=== PATIENT | female | born 1995 | race Caucasian/White ===

== ENCOUNTER 2021-05-14 13:39 | Outpatient (CLI) | payer BC, SELFPAY ==
--- NOTE | ~2021-05-14 | US_ITS ---
EXAMINATION: US renal BI EXAM DATE: 05/14/2021 14:10 INDICATION: Abdominal pain. . TECHNIQUE: Multiple grayscale and Doppler images of the kidneys were obtained (by a technologist who performed the scan) and subsequently reviewed. There is no prior study for comparison. FINDINGS: There are normal renal artery resistive indices bilaterally. Right kidney: There is normal contour and echogenicity. It measures 13.1 x 4.2 x 5.7 centimeters. T here are no focal renal lesions identified. There is no hydronephrosis. Left kidney: There is normal contour and echogenicity. It measures 13.3 x 5.3 x 6.3 centimeters. Th ere are no focal renal lesions identified. There is no hydronephrosis. Bladder unremarkable. Bilateral ureteral jets were confirmed. IMPRESSION: 1. Sonographically unremarkable kidneys. Reviewed, dictated and finalized at location A. ICAL SCIENCES PROFESSOR
== END 2021-05-14 13:40 | disposition home or self-care (01) ==
LOC: ANHIMG 13:46
PROVIDERS: Visit Provider Obstetrics & Gynecology
DX: R10.9 Unspecified abdominal pain (principal)
CPT/HCPCS: 76775

== ENCOUNTER 2021-08-19 13:38 | Outpatient (RCR) | payer BC, SELFPAY ==
[2021-05-26 14:37] VITALS: BP 110/73; PULSE 89
[2021-08-19 14:32] LABS: Alanine Aminotransferase 12 U/L (6-35); Albumin Level 2.9 g/dL (3.5-5.1); Alkaline Phosphatase 115 U/L (38-126); Anion Gap 5 mmol/L (8-16); Aspartate Amino Transferase 23 U/L (14-36); Bilirubin,Total 0.4 mg/dL (0.2-1.3); Blood Urea Nitrogen 5 mg/dL (7-17); Calcium 7.8 mg/dL (8.4-10.2); Carbon Dioxide 21 mmol/L (22-30); Chloride 109 mmol/L (98-107); Estimated Glomerular Filt Rate > 60; Glucose 92 mg/dL (65-110); Potassium 3.2 mmol/L (3.4-5.0); Sodium 135 mmol/L (137-145)
[2021-08-19 14:39] VITALS: BP 115/78; PULSE 91
[2021-08-24 18:22] LABS: Chenodeoxycholic Acid <0.5 umol/L (< OR = 3.9); Cholic Acid <0.5 umol/L (< OR = 2.8); Deoxycholic Acid <0.5 umol/L (< OR = 2.3); Total Bile Acids <1.5 umol/L (< OR = 8.3)
== END 2021-08-24 23:59 | disposition home or self-care (01) ==
LOC: ANHOBOP 13:38
PROVIDERS: Visit Provider Obstetrics & Gynecology
DX: O36.8120 Decreased fetal movements, second trimester, not applicable or unspecified (principal); Z3A.24 24 weeks gestation of pregnancy; Z3A.36 36 weeks gestation of pregnancy
CPT/HCPCS: 36415; 59025; 80053; 82542

== ENCOUNTER 2021-08-22 12:57 | Inpatient (IN) | payer BC, SELFPAY ==
[2021-08-22] VITALS (13 sets, daily range): BP systolic 106–136; BP diastolic 54–92; PULSE 92–128; TEMP 36.5–36.6; BMI 35.4
--- OUTSIDE RECORDS SUMMARY | 2021-08-22 13:02 | XMS_ITS ---
:1995 Author Care Team Providers Name Role Phone ELLEN SHEPHERD MD Primary Care Provider [phone] Allergies Code Code System Name Reaction Severity Status Onset NKDA ? Medications Name Status Start Date Stop Date ? ? amoxicillin 500 mg capsule Completed ? 06/20 TAKE ONE CAPSULE BY MOUTH EVERY 6 HOURS UNTIL ALL TAKEN metoclopramide 10 mg tablet Active ? Not available TAKE 1 TABLET BY MOUTH EVERY 6 HOURS ondansetron HCl 4 mg tablet Active ? Not available TAKE 1 TABLET BY MOUTH EVERY 6 HOURS NEEDED FOR NAUSEA OR VO MITING Pepcid Active ? Not available Active ? Not available promethazine 25 mg tablet Active ? Not av ailable TAKE 1 TABLET BY MOUTH EVERY 4 HOURS ursodiol 200 mg capsule Active ? Not avai lable Take 1 capsule twice a day by oral route. Problems Name Status Onset Date Source ? Active 03/05/2021 ? Procedures Date Name Performed by ? 03/24/2005 Tonsillectomy Information not avai lable 03/05/2021 US, Obstetric, 1St Trimester [place] [address] [place] [address] ([address]) 05/03/2021 , Obstetric, 2Nd or 3Rd Trimester [facility] [address] [place] [address] (Work Place) 05/03/2021 , Obstetric, Transvaginal [place] [address]
--- OUTSIDE RECORDS SUMMARY | 2021-08-22 13:02 | XMS_ITS | Encounter Summary ---
:1995 Author Care Team Providers Name Role Phone Isaac Christensen MD Primary Care Provider [phone] Reason for Visit OB visit OB [id number] EDC 09/10/2021 LMP 12/04/2020 Assessment and Plan Assessment Note Patient is _37__weeks . Discuss ed plan. 1. Routine care Discussion Note: None recorded.Patient educational handouts: No information available. Plan of Care Reminders Provider Appointments Nst 08/24/2021 2:30PM Nst, , EQUIP ? Ob Routine 08/30/2021 12:00PM Melany peña CNM Lab None recorded. ? ? Referral None recorded. ? ? Procedures None recorded. ? ? Surgeries None recorded. ? ? Imaging None recorded. ? ? Medications Name Start Date ? ? metoclopramide 10 mg tablet ? TAKE 1 TABLET BY MOUTH EVERY 6 HOURS ondansetron HCl 4 mg tablet ? TAKE 1 TABLET BY MOUTH EVERY 6 HOURS NEEDED FOR NA USEA OR VOMITING Pepcid ? ? promethazine 25 mg tablet ? TAKE 1 TABLET BY MOUTH EVERY 4 HOURS ursodiol 200 mg capsule ? Take 1 capsule twice a day by oral route. Medications Administered None recorded. Vitals Height Weight BMI Blood Pressure 5 ft 4 in 213 lbs 36.6 kg/m2 126/86 mm[Hg] Results Lab Results None recorded. Allergies Code Code System Name Reaction Severity Onset NKDA ? ? ? Problems Name Status Onset Date Source ? Active 03/05/2021 ? Procedures Date Name
--- OUTSIDE RECORDS SUMMARY | 2021-08-22 13:03 | XMS_ITS | Encounter Summary ---
:1995 Author Care Team Providers Name Role Phone Isaac Christensen MD Primary Care Provider [phone] Reason for Visit OB visit OB [id number] EDC 09/10/2021 LMP 12/04/2020 Assessment and Plan Assessment Note Patient is _28__weeks . Discuss ed plan. 1. Routine care [...] BMI Blood Pressure 5 ft 4 in 198 lbs 34 kg/m2 109/77 mm[Hg] Results Lab Results None recorded. Allergies Code Code System Name Reaction Severity Onset NKDA ? ? ? Problems Name Status Onset Date Source ? Active 03/05/2021 ? Procedures Date Nam
--- OUTSIDE RECORDS SUMMARY | 2021-08-22 13:03 | XMS_ITS | Encounter Summary ---
:1995 Author Care Team Providers Name Role Phone Isaac Christensen MD Primary Care Provider [phone] Reason for Visit OB visit OB [id number] EDC 09/10/2021 LMP 12/04/2020 Assessment and Plan Assessment Note Patient is __32_weeks . Discuss ed plan. 1. Routine care [...] BMI Blood Pressure 5 ft 4 in 205 lbs 35.2 kg/m2 120/87 mm[Hg] Results Lab Results None recorded. Allergies Code Code System Name Reaction Severity Onset NKDA ? ? ? Problems Name Status Onset Date Source ? Active 03/05/2021 ? Procedures Date Nam
--- OUTSIDE RECORDS SUMMARY | 2021-08-22 13:03 | XMS_ITS | Encounter Summary ---
:1995 Author Care Team Providers Name Role Phone Isaac Christensen MD Primary Care Provider [phone] Reason for Visit OB visit OB [id number] EDC 09/10/2021 lmp 12/04/2020 Assessment and Plan Assessment Note Patient is _34__weeks . Discuss ed plan. 1. Routine care [...] BMI Blood Pressure 5 ft 4 in 207 lbs 35.5 kg/m2 114/78 mm[Hg] Results Lab Results None recorded. Allergies Code Code System Name Reaction Severity Onset NKDA ? ? ? Problems Name Status Onset Date Source ? Active 03/05/2021 ? Procedures Date Name
--- OUTSIDE RECORDS SUMMARY | 2021-08-22 13:03 | XMS_ITS | Encounter Summary ---
:1995 Author Care Team Providers Name Role Phone Isaac Christensen MD Primary Care Provider [phone] Reason for Visit None recorded. Assessment and Plan 1. Uterine size for dates discrepancy ? US, obstetric, follow-up Discussion Note: None recorded.Patient educational handouts: No information available. Plan of Care Reminders Provider Appointments Nst 08/24/2021 2:30PM Nst, , EQUIP ? Ob Routine 08/30/2021 12:00PM Melany peña CNM Lab None recorded. ? ? Referral None recorded. ? ? Procedures None recorded. ? ? Surgeries None recorded. ? ? Imaging US, Obstetric, Follow-up 08/01/2021 Pedro gonzalez Medications Name Start Date ? ? metoclopramide [...] oral route. Medications Administered None recorded. Vitals None recorded. Results Lab Results None recorded. Allergies Code Code System Name Reaction Severity Onset NKDA ? ? ? Problems Name Status Onset Date Source ? Active 03/05/2021 ? Procedures Date Name Performed by ? 03/24/2005 Tonsillectomy Information not avai lable 08/01/2021 US, Obstetric, Follow-up Radha
--- OUTSIDE RECORDS SUMMARY | 2021-08-22 13:03 | XMS_ITS | Encounter Summary ---
:1995 Author Care Team Providers Name Role Phone Isaac Christensen MD Primary Care Provider [phone] Reason for Visit OB visit 30w1d Assessment and Plan 1. Routine care Discussion Note: None recorded.Patient [...] BMI Blood Pressure 5 ft 4 in 202 lbs 34.7 kg/m2 126/80 mm[Hg] Results Lab Results None recorded. Allergies Code Code System Name Reaction Severity Onset NKDA ? ? ? Problems Name Status Onset Date Source ? Active 03/05/2021 ? Procedures Date Name Performed by ? 03/24/2005 Tonsillectomy Information not avai labnafisa Vaccine List None recorded. Social History
--- OUTSIDE RECORDS SUMMARY | 2021-08-22 13:03 | XMS_ITS | Encounter Summary ---
:1995 Author Care Team Providers Name Role Phone Isaac Christensen MD Primary Care Provider [phone] Reason for Visit OB visit OB [id number] EDC 09/10/2021 LMP 12/04/2020 Assessment and Plan Assessment Note Patient is 36___weeks . Discuss ed plan. 1. Routine care [...] BMI Blood Pressure 5 ft 4 in 212 lbs 36.4 kg/m2 116/80 mm[Hg] Results Lab Results None recorded. Allergies Code Code System Name Reaction Severity Onset NKDA ? ? ? Problems Name Status Onset Date Source ? Active 03/05/2021 ? Procedures Date Name
--- OUTSIDE RECORDS SUMMARY | 2021-08-22 13:03 | XMS_ITS | Encounter Summary ---
:1995 Author Care Team Providers Name Role Phone Isaac Christensen MD Primary Care Provider [phone] Reason for Visit OB visit Assessment and Plan Assessment Note Patient is ___weeks . Discussed plan. 1. Routine care Discussion Note: None [...] BMI Blood Pressure 5 ft 4 in 188 lbs 32.3 kg/m2 119/85 mm[Hg] Results Lab Results None recorded. Allergies Code Code System Name Reaction Severity Onset NKDA ? ? ? Problems Name Status Onset Date Source ? Active 03/05/2021 ? Procedures Date Name Performed by ? 03/24/2005
--- OUTSIDE RECORDS SUMMARY | 2021-08-22 13:03 | XMS_ITS | Referral Summary ---
:1995 Author Organization [facility] Address [address] [place] [id number] Care Team Providers Name Role Phone NO PCP, STATES Primary Care Physician Unavailable Encounter 09/26/19 - 09/26/19 [facility] [address] [address] Encounter Diagnosis Pain, dental (Discharge Diagnosis) - 09/26/19 Discharge Disposition: 01-Home or Self Care Attending Physician: Melany Norton MD Admitting Physician: Melany Norton MD Vital Signs Most recent to oldest [Reference Range]: 1 Temperature Oral [35.8-37.3 degC] 37.1 degC (09/26/19 7:16 PM) Peripheral Pulse Rate [60-100 bpm] 78 bpm (09/26/19 7:16 PM) Respiratory Rate [14-20 br/min] 16 br/min (09/26/19 7:16 PM) Blood Pressure [90-140/60-90 mmHg] 129/89 mmHg (09/26/19 7:16 PM) SpO2 99 % (09/26/19 7:16 PM) Problem List No Known Problems Allergies, Adverse Reactions, Alerts No Known Medication Allergies Medications clindamycin 300 mg oral capsule 300 mg 1 caps, Oral, q6hr, X 7 days, # 28 caps, 0 Refill(s) Start Date: 09/26/19 Stop Date: 10/03/19 Status: OrderedNorco 5 mg-325 mg oral tablet 1 tabs, Oral, q6hr, as needed for pain, prn acute pain not to exceed 6 tablets/day, X 1 days, # 3 tabs, 0 Refill(s), Indication TO GO MEDS Start Date: 09/26/19 Stop Date: 09/27/19 Status: OrderedNorco 5 mg-325 mg oral tablet 1 tabs, Oral, q4hr, as needed for pain, prn acute pain not to exceed 6 tablets/day, X 3 days, # 12 tabs, 0 Refill(s) Start Date: 09/26/19 Stop Date: 09/29/19 Status: Orderedondansetron 4 mg oral disintegrating strip 4 mg 1 Each, Oral, TID, # 6 Each, 0 Refill(s) Start Date: 09/26/19 Status: Orderedondansetron 4 mg oral disintegrating strip 4 mg 1 Each, Oral, Once, TO GO MED, # 1 Each, 0 Refill(s) Start Date: 09/26/19 Status: Ordered Procedures Procedure Date Related Diagnosis Body Site Status No past history of procedure
--- OUTSIDE RECORDS SUMMARY | 2021-08-22 13:03 | XMS_ITS | Encounter Summary ---
:1995 Author Care Team Providers Name Role Phone Isaac Christensen MD Primary Care Provider [phone] Reason for Visit NST [id number] EDC 09/10/2021 Assessment and Plan 1. Cholestasis of ? non-stress test Discussion Note: None recorded.Patient educational handouts: No information available. Plan of Care Reminders Provider Appointments Nst 08/24/2021 2:30PM Nst, , EQUIP ? Ob Routine 08/30/2021 12:00PM Melany peña CNM Lab None recorded. ? ? Referral None recorded. ? ? Procedures None recorded. ? ? Surgeries None recorded. ? ? Imaging Non-stress Test 08/21/2021 [place] Medications Name Start Date ? ? metoclopramide [...] BMI Blood Pressure 5 ft 4 in 215 lbs 36.9 kg/m2 128/90 mm[Hg] Results Lab Results None recorded. Allergies Code Code System Name Reaction Severity Onset NKDA ? ? ? Problems Name Status Onset Date Source ? Active 03/05/2021 ? Procedures Date Name Performed by ? 03/24/2005 Tonsillectomy Information not avai lable
[2021-08-22 13:50] LABS: Basophils Percent Auto 0.3 % (0.2-1.2); Eosinophils Percent Auto 0.3 % (0-4.4); Hematocrit 35.9 % (37.0-47.0); Hemoglobin 11.8 g/dL (12.0-15.0); Immature Granulocyte Absolute 0.02 K/mm3 (0.00-0.031); Immature Granulocyte Percent A 0.3 % (0-0.5); Lymphocytes Absolute Auto 1.51 K/mm3 (0.9-3.2); Lymphocytes Percent Auto 22.2 % (18.3-44.2); Mean Corpuscular HGB Conc 32.9 g/dl (32-36); Mean Corpuscular Hemoglobin 31.1 pg (26-34); Mean Corpuscular Volume 94.7 fl (80-100); Mean Platelet Volume 11.3 fl (7.4-10.4); Monocytes Absolute Auto 0.6 K/mm3 (0.1-0.6); Monocytes Percent Auto 8.2 % (2.6-8.5); Neutrophils Absolute Auto 4.7 K/mm3 (1.3-6.7); Neutrophils Percent Auto 68.7 % (45.5-73.1); Platelet Count Result 160 k/mm3 (150-375); Red Blood Count 3.79 M/mm3 (4.2-5.4); Red Cell Distribution Width 15.2 % (11.5-14.5); White Blood Count 6.8 K/mm3 (4.5-10.0)
[2021-08-22] MEDS: DINOPROSTONE 10 MG VAG INSERT VAGINAL (13:50)
--- NOTE | 2021-08-22 14:09 | LDADM ---
This patient, Aurea Licea, was admitted to Labor/Delivery/Recovery 106 on 08/22/21 at 12:57. Plans for labor, pain management and were discussed with patient. Patient/family oriented to hospital policies and general routines including ID bracelet, bed and alarms, visiting hours, pain management, procedures, bathroom and other care routines, personal items, smoking policy, room service/diet and guest tray routines, infant security routines, and visiting hours. Patient/Family are encouraged to report perceived risks to care and to ask questions if they do not understand what they are told or what they should do. See OBIX for further documentation.
--- NOTE | 2021-08-22 18:30 | PM.IMHP ---
H&P: HPI History of Present Illness Date/Time: 08/22/21 18:30 Chief Complaint: @ 37.2 weeks gestation. Patient admitted for medical induction of labor for suspected cholestasis in . Patient complaints of intense itching on palms and soles of feet. CMP WNL, bile acids still pending and will not be available until 08/24. Patient GBS Negative. Review of Systems Review of Systems: All systems reviewed & are unremarkable except as noted in HPI and below PMFSH Family History Family History (Updated 08/15/21 @ 13:35 by Varun Guerin RN) Other No pertinent family history Social History Social History (System 05/30/21 @ 13:53 by Keya Handy) Smoking status: Never smoker Second hand tobacco smoke exposure: No Substance use: never Spiritual care concerns: No Meds Home Medications and Allergies Home Medications Medication Instructions Recorded Confirmed Type ondansetron HCl 4 mg tablet 4 mg PO Q6H PRN Nausea 05/26/21 08/22/21 History doxylamine succinate 25 mg tablet 25 mg PO HS 08/15/21 08/22/21 History (Unisom (doxylamine)) prenat.vits,taylor,qhl-aizs-hapak 1 tablet PO DAILY 08/15/21 08/19/21 History famotidine 20 mg tablet (Pepcid) 20 mg PO DAILY 08/19/21 08/22/21 History ursodiol 300 mg capsule 300 mg PO BID 14 days #28 caps 08/19/21 08/22/21 Rx Allergies Allergy/AdvReac Type Severity Reaction Status Date / Time No Known Allergies Allergy Verified 08/15/21 13:30 Vital Signs Vital Signs - 24 hr 08/22/21 13:13 08/22/21 13:16 08/22/21 13:31 Temperature 36.5 C Pulse Rate 94 92 Blood Pressure 133/66 136/66 Oxygen Delivery 08/22/21 14:01 08/22/21 14:16 08/22/21 14:31 Temperature Pulse Rate 106 H 112 H 102 H Blood Pressure 124/83 109/84 108/76 Oxygen Delivery 08/22/21 14:47 08/22/21 15:01 08/22/21 15:16 Temperature Pulse Rate 128 H 95 119 H Blood Pressure 106/82 108/68 110/69 Oxygen Delivery 08/22/21 15:31 08/22/21 15:46 08/22/21 14:05 Temperature Pulse Rate 97 98 Blood Pressure 110/74 106/54 L Oxygen Delivery Room Air Exam Const: General: cooperative, healthy appearing and comfortable H&P: Results Labs Labs: Short CBC 08/22/21 Range/Units 13:37 WBC 6.8 (4.5-10.0) K/mm3 Hgb 11.8 L (12.0-15.0) g/dL Hct 35.9 L (37.0-47.0) % Plt Count 160 (150-375) k/mm3 Assessment and Plan Assessment and plan (1) Cholestasis during in third trimester: Code(s): O26.613 - Liver and biliary tract disorders in , third trimester; K83.1 - Obstruction of bile duct Status: Acute Plan at 37.2 weeks gestation. Suspected Cholestasis Discussed plan of care with Dr. Salas and Dr. Yarbrough and proceed with Induction.
[2021-08-22] MEDS: ursodioL 300 MG CAPSULE PO (20:00)
--- NOTE | 2021-08-22 20:03 | WPDANESEPP ---
Anes - Eval Pre Procedure Date/Time: 08/22/21 20:03 Pre Op Diagnosis: Induction of Labor Patient Data Age: 26 Gender: F Height: 1.65 m Weight: 96.5 kg Last Vital Signs Temp 36.5 C 08/22/21 13:13 Pulse 98 08/22/21 15:46 BP 106/54 L 08/22/21 15:46 O2 Del Method Room Air 08/22/21 14:05 Allergies Allergy/AdvReac Type Severity Reaction Status Date / Time No Known Allergies Allergy Verified 08/15/21 13:30 Home Medications Medication Instructions Recorded Confirmed Type ondansetron HCl 4 mg tablet 4 mg PO Q6H PRN Nausea 05/26/21 08/22/21 History doxylamine succinate 25 mg tablet 25 mg PO HS 08/15/21 08/22/21 History (Unisom (doxylamine)) prenat.vits,taylor,atk-xtjh-tonen 1 tablet PO DAILY 08/15/21 08/19/21 History famotidine 20 mg tablet (Pepcid) 20 mg PO DAILY 08/19/21 08/22/21 History ursodiol 300 mg capsule 300 mg PO BID 14 days #28 caps 08/19/21 08/22/21 Rx Laboratory Tests 08/22/21 08/22/21 08/22/21 13:37 13:37 13:37 WBC 6.8 K/mm3 K/mm3 (4.5-10.0) RBC 3.79 M/mm3 L M/mm3 (4.2-5.4) Hgb 11.8 g/dL L g/dL (12.0-15.0) Hct 35.9 % L % (37.0-47.0) MCV 94.7 fl fl (80-100) MCH 31.1 pg pg (26-34) MCHC 32.9 g/dl g/dl (32-36) RDW 15.2 % H % (11.5-14.5) Plt Count 160 k/mm3 k/mm3 (150-375) MPV 11.3 fl H fl (7.4-10.4) Immature Gran % (Auto) 0.3 % % (0-0.5) Neut % (Auto) 68.7 % % (45.5-73.1) Lymph % (Auto) 22.2 % % (18.3-44.2) [place] % (Auto) 8.2 % % (2.6-8.5) Eos % (Auto) 0.3 % % (0-4.4) Baso % (Auto) 0.3 % % (0.2-1.2) Lymph # (Auto) 1.51 K/mm3 K/mm3 (0.9-3.2) [place] # (Auto) 0.6 K/mm3 K/mm3 (0.1-0.6) Eos # (Auto) 0.0 K/mm3 K/mm3 (0-0.3) Baso # (Auto) 0.0 K/mm3 K/mm3 (0.0-0.1) Abs Immat Gran (auto) 0.02 K/mm3 K/mm3 (0.00-0.031) Absolute Neuts (auto) 4.7 K/mm3 K/mm3 (1.3-6.7) Absolute Nucleated RBC 0.0 K/mm3 K/mm3 (0.0-0.012) Nucleated RBC % 0.0 % % (0.0-0.2) RPR Pending Blood Type A Positive Antibody Screen Negative Patient hx anesthesia problems: none Family hx anesthesia problems: none Results Review: All pre-operative results and documents have been reviewed as part of the pre-operative evaluation. [facility] Family History Family History Other No pertinent family history Social History Social History Smoking status: Never smoker Second hand tobacco smoke exposure: No Substance use: never Spiritual care concerns: No Exam Day of Procedure 08/22/21 20:03
[2021-08-23] VITALS (160 sets, daily range): BP systolic 95–134; BP diastolic 46–119; PULSE 69–134; RESP 18; TEMP 36.2–37.6; O2SAT 94–100
[2021-08-23] MEDS: LACTATED RINGERS 1,000 ML 125 ML IV CONT ×3 (04:18→10:56)
[2021-08-23] MEDS: OXYTOCIN 30 UNITS/NS 500 ML 30 UNITS/500 ML BAG 6 UNITS IV CONT (04:19)
[2021-08-23] MEDS: ONDANSETRON INJ 4 MG/2 ML VIAL IV PUSH ×2 (05:44→12:18)
[2021-08-23] MEDS: ursodioL 300 MG CAPSULE PO (07:50)
--- NOTE | 2021-08-23 08:08 | PM.OBPNLAB ---
Pain Control Date/time seen: 08/23/21 08:08 Comments: Comfortable Pelvic Exam Dilation (cm): 2 Effacement (%): 70 station: -1 Amniotic membrane status: Ruptured (Ruptured spontaneously during exam.) Status status: Category l
[2021-08-23] MEDS: fentaNYL CITRATE INJ (*CRX) 100 MCG/2 ML VIAL 50 MCG IV PUSH (09:45)
[2021-08-23 15:20] LABS: Rapid Plasma Reagin Non-Reactive (NonReactive)
--- NOTE | 2021-08-23 16:34 | PM.OBPRVD ---
OB - Delivery Note Procedure Delivery date: 08/23/21 Procedure: Vaginal delivery Events: Other (Cholestasis) Induction method: AROM, Per Pitocin Protocol and Per Cervidil Protocol Delivery monitor: External FHT and External Uterine Route of delivery: Episiotomy description: None Laceration Description: Perineal - 1st Degree Delivery repair: vicryl Specimen: Yes Quantitative Blood Loss (ml): 155 Anesthesia type: Epidural Disposition: Floor Baby Date of : 08/23/21 Time of : 16:17 Weeks of gestation at delivery: 37 gender: Female Weight (pounds): 6 Weight (ounces): 14 presentation: vertex position: Right Occiput Anterior Placenta delivery description: Spontaneous Cord Vessel Description: 3 Vessels, Clamped/Cut and Delayed Cord Clamping score one minute: 8 score five minutes: 9 Narrative: Mom and baby skin to skin in stable condition.
[2021-08-23] MEDS: OXYTOCIN 30 UNITS/NS 500 ML 30 UNITS/500 ML BAG 125 UNITS IV CONT (16:45)
[2021-08-23] MEDS: IBUPROFEN 600 MG TABLET PO (18:52)
[2021-08-23] MEDS: BENZOCAINE 20% AER SPR (*SP) 56 GM CAN 1 SPRAY TOPICAL (18:52)
[2021-08-23] MEDS: WITCH HAZEL 40 PADS 1 PAD TOPICAL (18:52)
--- NOTE | 2021-08-23 19:10 | ADMGEN ---
This patient, Aurea Licea, was admitted to OB 2nd Floor Room 290-00. Patient/family oriented to hospital policies and general routines including ID bracelet, bed and alarms, visiting hours, pain management, procedures, bathroom and other care routines, personal items, smoking policy, room service/diet, and visiting hours. Information on how to activate the Rapid Response Team has been discussed. Patient/Family are encouraged to report perceived risks to care and to ask questions if they do not understand what they are told or what they should do.
[2021-08-24 03:45] VITALS: BP 133/89; PULSE 92; RESP 18; TEMP 36.5
[2021-08-24 04:38] LABS: Hematocrit 33.8 % (37.0-47.0); Hemoglobin 11.4 g/dL (12.0-15.0)
[2021-08-24 07:20] VITALS: BP 117/81; PULSE 95; RESP 16; TEMP 36.3; O2SAT 98
--- NOTE | 2021-08-24 07:37 | PM.OBPNVD ---
OB - PN: Subj Subjective Date/time seen: 08/24/21 07:37 Patient skin to skin with , doing well. No concerns. OB - PN: Obj Data Labs CBC & Chem 7: 08/24/21 03:22 Labs: Laboratory Results - last 24 hr 08/22/21 08/24/21 13:37 03:22 Hgb 11.4 L Hct 33.8 L RPR Non-reactive OB - PN A/P Plan day: 1 Plan: routine care Time Spent With Patient Time: Total time spent is greater than 50% in coordination of care (as documented) at patient's floor/unit and/or counseling patient: Review of Systems Review of Systems: All systems reviewed & are unremarkable except as noted in HPI and below Exam Const: General: cooperative, healthy appearing and comfortable
--- NOTE | 2021-08-24 08:59 | WPDANLDPN2 ---
Anes-Prog Note L&D Date/Time: 08/24/21 08:59 Neuro status: Neuro function grossly intact. Vital Signs: Last Vital Signs Temp 36.3 C L 08/24/21 07:20 Pulse 95 08/24/21 07:20 Resp 16 08/24/21 07:20 BP 117/81 08/24/21 07:20 Pulse Ox 98 08/24/21 07:20 O2 Del Method Room Air 08/24/21 07:45 Pain score (VAS): 0 I/O: Intake & Output 08/23/21 08/24/21 08/24/21 23:59 07:59 15:59 Output Total 262 Balance -262 Patient feedback: Patient satisfied with anesthetic care.
[2021-08-24] MEDS: IBUPROFEN 600 MG TABLET PO (11:14)
[2021-08-24] MEDS: MULTIVIT/MIN/PREN/FOL AC/IRON TABLET 1 TAB PO (11:15)
[2021-08-24 11:46] VITALS: BP 121/82; PULSE 90; RESP 18; TEMP 36.8; O2SAT 99
--- NOTE | 2021-08-24 12:43 | PC.NURSE ---
[id number] [id number] Introductions were made, then consulted with patient to assess needs related to . Mother led the conversation with her experience feeding her infant so far and states infant is latching well with no pain. Father of baby is holding infant. Mother works well with her with encouragement and education. Encouraged understanding of the benefits of skin to skin (unwrapping infant and placing vertically on her chest), responsive feeding and how to watch for early feeding signs, frequency of feeding on demand about every 8-12 times in 24 hours (every 2-3 hours), milk production, duration of feeding, signs of adequate intake/output and how to record on the feeding sheet. Reviewed positioning and ear, shoulder, hip alignment, supporting the breast, asymmetrical latch (off-center), and leading with the chin with a big open side gape. latched optimally to the left breast in cross cradle position. Education given to mother of how to visualize suck/swallow ratios and drinking at the breast. was able to maintain latch without discomfort to mother. Nipple care reviewed with optimal latch and good positioning. Reminding mother of comfort measures of healing with a warm and wet washcloth to rinse breast, then leave open to air-dry as needed. Reviewed good handwashing when or touching the breast/nipples to prevent infection. Resources used to facilitate learning were used with the visual handouts/mom and baby guide. Mother voiced understanding of responsive feedings, stimulating with skin to skin, hand expressed colostrum, touch, talking to to encourage if it has been 2 -3 hours since the start of the last , to call if does not latch or there is discomfort with . Reported to the primary RN.
--- NOTE | 2021-08-24 14:40 | PC.NURSE ---
[id number] Consulted with patient to assess needs related to . Mother led conversation with her experience with feeding baby so far. Mother demonstrates working well with her . Reviewed working with , breast, nipples and how to protect the nipples with an optimal deep latch, good positioning, and good hand washing. Encouraged understanding the benefits of skin to skin, responding to feeding cues, frequencies of feeding 8-12 times in 24 hours (approximately 2-3 hours), duration of feedings, milk production, intake/output feeding sheet and signs of adequate intake encouraging swallowing at the breast. Reviewed positioning and alignment, supporting breast, off-centered (asymmetrical latch) and leading with the chin with big open wide gape. latched optimally to the right breast in cross cradle position. Education given to mother of how to visualize suck/swallow ratios and drinking at the breast. Infant was able to maintain latch without discomfort to mother. Nipple care reviewed with optimal latch and good positioning. Resources used to facilitate learning were used from the mom and baby guide. Mother voiced understanding of the education shared, calling for assistance if the does not latch or if there is discomfort with . Reported to the primary RN.
[2021-08-24 17:22] VITALS: BP 121/85; PULSE 84; RESP 16; TEMP 36.3; O2SAT 98
[2021-08-24] MEDS: DOCUSATE SODIUM 100 MG CAPSULE PO (20:04)
[2021-08-24 20:31] VITALS: BP 115/73; PULSE 96; RESP 18; TEMP 35.9; O2SAT 98
[2021-08-25] MEDS: IBUPROFEN 600 MG TABLET PO (04:23)
[2021-08-25 08:00] VITALS: BP 122/83; PULSE 104; RESP 16; TEMP 36.8; O2SAT 98
--- NOTE | 2021-08-25 09:03 | PM.OBPNVD ---
OB - PN: Subj Subjective Date/time seen: 08/25/21 09:03 Patient comments: no complaints, pain well controlled and tolerating diet OB - PN: Obj Data Labs CBC & Chem 7: 08/24/21 03:22 OB - PN A/P Plan day: 2 Plan: routine care and discharge home Time Spent With Patient Time: Total time spent is greater than 50% in coordination of care (as documented) at patient's floor/unit and/or counseling patient: Exam Const: General: comfortable and no acute distress Resp: Effort & Inspection: normal respiratory effort Auscultation: no rales, no rhonchi and no wheezes Cardio: Rate: regular rate Heart sounds: no click, no murmurs and no rubs GI: GI Palp: Yes Soft to palpation and No Tenderness to palpation present (GI) Auscultation: normal bowel sounds Extrem: General: normal to inspection, no pedal edema and no calf tenderness
--- NOTE | 2021-08-25 09:05 | PM.OBDSVD ---
DS: Admitting Diagnosis Discharge Date 08/25/2021 Admitting Diagnosis cholestasis of , term DS: Discharge Diagnosis Discharge Diagnosis (1) Cholestasis during in third trimester: Code(s): O26.613 - Liver and biliary tract disorders in , third trimester; K83.1 - Obstruction of bile duct Status: Acute (2) Term : Code(s): Z34.90 - Encounter for supervision of normal , unspecified, unspecified trimester Status: Acute OB - DS: Summary OB Procedures : None OB Procedures Intrapartum: Spontaneous Vag Delivery OB Procedures: : None Time Spent with Patient Time attestation: Total time spent providing and/or coordinating discharge services: DS: Data Data Completed and Pending Pending studies at discharge: Pending at discharge 08/23/21 16:22 Surgical [PTH] Routine Discharge Plan Discharge Attending physician on discharge: Seamus Yarbrough Discharging Clinician: Seamus Yarbrough Patient Disposition: Home, Self-Care Activity: pelvic rest Diet: regular Patient Instructions: Antibiotic Form Stand Alone Forms: General Discharge Information Follow-up/Referrals: Seamus Yarbrough MD [Physician] - Discharge Medications: Continued ondansetron HCl 4 mg tablet 4 mg PO Q6H PRN (Reason: Nausea) famotidine [Pepcid] 20 mg Tablet 20 mg PO DAILY ursodiol 300 mg Capsule 300 mg PO BID 14 Days Qty: 28 0RF Unisom (doxylamine) 25 mg Tablet 25 mg PO HS #2 Tablet 1 tablet PO DAILY Date of admission: 08/22/21 12:57 Primary Care Provider: Fermin,Isaac Chacon Admitting Provider: Seamus Yarbrough Attending physician on admission: Seamus Yarbrough Condition: Stable
[2021-08-25] MEDS: TETANUS,DIPHTHERIA,AC PERTUSSIS ADULT (0.5 ML) BOOSTRIX IM (09:18)
[2021-08-25] MEDS: DOCUSATE SODIUM 100 MG CAPSULE PO (09:19)
[2021-08-25] MEDS: MULTIVIT/MIN/PREN/FOL AC/IRON TABLET 1 TAB PO (09:19)
--- NOTE | 2021-08-25 10:05 | PC.NURSE ---
Patient viewed the discharge video Mother & Baby Care, The First Two Weeks . Patient was given the opportunity and encouraged to ask questions. Patient verbalized understanding of information shared and has been given the mother/baby guide for home reference.
== END 2021-08-25 13:10 | disposition home or self-care (01) | DRG 805 ==
LOC: ANHLDR 08-23 11:23 → ANHOB2 08-23 19:15
PROVIDERS: Admitting Provider Obstetrics & Gynecology; PCP Family Medicine; Referring Provider Advanced Practice Midwife; Visit Provider Obstetrics & Gynecology
DX: O26.62 Liver and biliary tract disorders in childbirth (principal); K83.1 Obstruction of bile duct; Z37.0 Single live birth; Z3A.37 37 weeks gestation of pregnancy; O70.0 First degree perineal laceration during delivery
CPT/HCPCS: 36415; 85014; 85018; 85025; 86592; 86850; 86900; 86901; 88307; 90715; A9270; J2405; J2590; J2795; J3010; J7120